=== PATIENT | male | born 1995 | race Caucasian/White ===

== ENCOUNTER 2023-07-15 07:42 | Emergency (ER) | payer BC, SELFPAY ==
[2023-07-15 07:43] VITALS: BP 124/64; PULSE 63; RESP 18; TEMP 35.8; O2SAT 99; BMI 28.0
--- NOTE | 2023-07-15 08:23 | EDS_ITS ---
HPI History of Present Illness Chief Complaint: Male Pain/Injury Detail of Chief Complaint: Left testicular pain and swelling. Informant: patient Pain Onset: Days Context: Gradual Onset Timing: Continuous Current Severity: Mild Maximum Severity: Mild Related History Sexually: Active Unprotected Sex: Yes STD: Yes Narrative Narrative: 28-year-old male no seen past medical history. He had left testicular pain and some swelling last several days. No fever. No trauma. No dysuria. No discharge. Was seen in urgent care for Summ he denies any other complaints. A was diagnosed with chlamydia 2 weeks ago. Had a prescription for doxycycline there was trouble getting that filled he now has a prescription will start the antibiotic. He also states that at the urgent care they gave him an IM i njection for Rocephin. Prior similar symptoms: No Recent Illness/Hospitalization: No PFSH PFSH Medical History Chlamydia infection Home Medications doxycycline hyclate 100 mg capsule 100 mg PO BID 7 days #14 caps 07/15/23 [Rx Last Taken Unknown] Allergy/AdvReac Type Severity Reaction Status Date / Time No Known Allergies Allergy Verified 07/15/23 07:42 Social History Smoking Status: Current every day smoker tobacco type: e-cigarettes ROS ROS ED ROS Narrative Swollen tender left testicle. Review of Systems ROS Unobtainable: Denies due to encephalopathy Constitutional Constitutional ED: Denies chills or fever(s) Eyes Eyes: Denies blurry vision ENT ENT ED: Denies ear pain Cardiovascular Cardiovascular: Denies chest pain Respiratory/Chest Respiratory/Chest: Denies cough or dyspnea Gastrointestinal Gastrointestinal: Denies abdominal pain, constipation, diarrhea, melena, nausea or vomiting Genitourinary Genitourinary ED: Denies dysuria, hematuria or urinary frequency Musculoskeletal Musculoskeletal: Denies arthralgias or back pain Integumentary Denies abscess or rash Neurologic Neurologic: Denies headache(s) Psychiatric Psychiatric: Denies anxiety Endocrine Endocrinology: Denies polydipsia, polyphagia or polyuria Hematologic/Lymphatic Hematologic/Lymphatic: Denies easy bleeding, easy bruising or lymphadenopathy Allergic/Immunologic Allergic/Immunologic ED: Denies mouth swelling, tongue swelling or urticaria EXAM Physical Exam Narrative Exam Narrative: 22-year-old male vital signs stable afebrile. HEENT exam unremarkable. Neck nontender. No lymphadenopathy. Lungs clear to auscultation bilaterally. Heart regular rhythm no murmur. Abdomen soft, nontender normal bowel sounds no peritoneal signs. External exam. Circumcised male. Right hemiscrotum right testicle nontender nonswollen. Left hemiscrotum tender swollen consistent with left orchitis. No abscess. No mass appreciated. No hernia or hydrocele. No inguinal lymphadenopathy. Moves all 4 extremities. Neurologically is awake and alert no focal motor deficits. Const Vital Signs: 07/15/23 07:43 Temperature 96.4 F L Temperature Source Temporal Pulse Rate 63 Respiratory Rate 18 Blood Pressure 124/64 H Blood Pressure Mean 84 Pulse Ox 99 Oxygen Delivery Method Room Air Positive well nourished and well developed; Negative for obese, cachectic, contractures or unkempt General Appearance ED: well developed and NAD; Negative for unkempt, cachectic, contractures or pallor Nutritional Appearance: Negative for cachectic or obese HEENT Reports moist mucous membranes; Denies dry mucous membranes normocephalic and atraumatic; Negative for trauma or tenderness Mouth ED: No dry mucous membranes Mouth: No dry mucous membranes Eyes PERRL and EOMs intact bilaterally General Eye ED: Negative for pale conjunctiva or scleral icterus Neck no lymphadenopathy, supple and no JVD General: Negative for tenderness Resp normal respiratory effort and clear to auscultation bilaterally Effort and Inspection: Negative for retractions Auscultation: Negative for rales, rhonchi or wheezes Cardio regular rate, regular rhythm, S1 normal heart sound, S2 normal heart sound and no murmurs Rate: Negative for bradycardia or tachycardic Rhythm: Negative for abnormal rhythm Heart Sounds: Negative for other GI non-tender, non-distended and no masses Inspection: Negative for abdominal distention Auscultation: normoactive bowel sounds Palpation: soft; Negative for tender or guarding no CVA tenderness Narrative: Tender, swollen left testicle. No mass. No hernia. No hydrocele. No lymphadenopathy. No lesions. Bladder / Kidney Exam: No CVA tenderness Groin / Perineum Exam: Negative for edema or lesions Back/Spine no CVA tenderness General Back: Negative for CVA tenderness Cervical Spine: Negative for cervical spine tenderness Thoracic Spine / Upper Back: Negative for thoracic spinal tenderness Lumbar Spine / Lower Back: Negative for lumbar spinal tenderness Extremity normal to inspection General Extremety ED: Negative for edema or pulses abnormal General Extremity: Negative for edema or pulses abnormal Neuro oriented x3, CN's II-XII intact bilaterally, moves all extremities and no focal motor deficits Sensorium / Orientation: alert, oriented to person, oriented to place and oriented to time; Negative for orientation impaired, confused, lethargic or stuporous Motor Exam: strength 5/5 throughout Psych mental status grossly normal Appearance: Negative for unkempt Attitude: No agitated Mood & Affect: Negative for depressed, anxious or tearful Thought Process: normal thought process Thought Content: normal thought content Skin General Skin Exam: Negative for jaundice or pallor Lesions: no lesions Rashes: no rashes MDM MDM MDM Narrative Medical decision making narrative: 28-year-old male diagnosed with chlamydia 2 weeks ago. Has a prescription for doxycycline which he has not started yet but it is available at the pharmacy. He also given an IM injection of Rocephin and urgent care. Exam is consistent with a left orchitis. I do not think he needs an ultrasound. This does not look like torsion. It is not high riding. There is no Johnson Clapper deformity. It was gradual in onset. He was instructed to take the doxycycline for a week if not proving follow-up with urology. I did give him additional prescription for doxycycline because he may need to treat this for 10 days or longer. Tylenol Motrin for pain. Discharge Plan Triage Chief Complaint: Male Pain/Injury ED Provider: Rafael Roberson Dx/Rx/DC Orders Clinical Impression: Acute orchitis Instructions: ED Orchitis Prescriptions: New doxycycline hyclate 100 mg capsule 100 mg PO BID 7 Days Qty: 14 0RF Primary Care Provider: NOT,DEFINED Referrals: Ben Thompson MD [Med Staff - Active Staff] - 1 Week if not improving NOT,DEFINED [Primary Care Provider] - Activity Restrictions/Additional Instructions: You have an infection in your left testicle. Start the antibiotic doxycycline that you already have the prescription for. This should work. If is not improving follow-up with the urologist I refer you to Dr. Armen Thompson. If the antibiotic is working but after a week this is not 100% better get the other prescription filled because sometimes you have to take it longer than a week. Motrin and Tylenol for pain. Disposition Disposition: Home, Self Care
[2023-07-15 08:39] VITALS: BP 124/64; PULSE 63; RESP 18; TEMP 35.8; O2SAT 99
== END 2023-07-15 08:52 | disposition home or self-care (01) ==
PROVIDERS: Emergency Provider Emergency Medicine; Visit Provider Emergency Medicine
DX: N45.2 Orchitis (principal); F17.290 Nicotine dependence, other tobacco product, uncomplicated
CPT/HCPCS: 99282